=== PATIENT | male | born 1955 | race Caucasian/White ===

== ENCOUNTER → 2019-07-10 | Emergency (ER) | payer OTHER ==
[~2019-07-10] VITALS: Ht 170.2 cm; Wt 145.1 kg
--- OUTSIDE RECORDS SUMMARY | 2019-07-10 11:16 | XMS REPORT ---
Author Author [facility] Address Unknown Phone Unavailable Care Team Providers Care Deckhand Oyster Dredge Name Role Phone Unavailable Unavailable Payers Payer Name Policy Type Policy Number Effective Date Expiration Date Problems This patient has no known problems. Allergies, Adverse Reactions, Alerts Allergy Name Allergy Type Status Severity Reaction(s) Onset Date Inactive Date Treating Clinician Comments Penicillins DA Active MO 2013-12-22 00:00:00 codeine DA Active OR 2013-12-22 00:00:00 UNKNOWN ANTI INFLAMATORY DA Active U 2013-12-22 00:00:00 Medications This patient has no known medications.
--- NOTE | 2019-07-10 11:56 | NUR ---
Patient recieving CT scan.
--- NOTE | 2019-07-10 12:20 | Diagnostic Imaging Report ---
Examination: CT Head and Face without Contrast History: Fell onto the right side of face. Comparison studies:None Technique: Axial images were obtained to the vertex and maxillofacial region. Coronal and sagittal images reconstructed from the axial data. Dose modulation, iterative reconstruction, and/or weight based adjustment of the mA/kV was utilized to reduce the radiation dose to as low as reasonably achievable. Intravenous contrast: None Findings: Scalp/skull: No abnormalities. No fractures, blastic or lytic lesions. Extra-axial spaces: No masses. No fluid collections. Brain sulci: Appropriate for age. Ventricles: Normal in size and configuration. No hydrocephalus. Parenchyma: There is encephalomalacia of the left greater than right anterior inferior frontal lobes. No masses, hemorrhage, acute or chronic cortical vascular insults. Sellar/suprasellar region: No abnormalities Craniocervical junction: Patent foramen magnum. No Chiari one malformation. Maxillofacial CT: Soft tissues: There is a right inferior preseptal and premalar hematoma measuring up to 1.7 cm in thickness. No additional soft tissue injuries are identified. Bones: No fractures or bone abnormalities. Orbits: Globes: Intact Extra or intraconal abnormalities: None. Paranasal sinuses: Clear Incidental findings: Incidental note is made of degenerative disc changes at C3-C4 with a posterior disc osteophyte complex resulting in at least moderate to severe spinal canal stenosis and severe right neural foraminal stenosis. IMPRESSION: 1. A 1.7 cm right inferior preseptal and premalar soft tissue hematoma without underlying facial fracture. 2. No acute intracranial abnormality. 3. Left greater than right inferior frontal lobe encephalomalacia. The pattern is suggestive of sequela of a remote traumatic injury, although remote infarction may have a similar appearance. 4. Incidental at least moderate to severe spinal canal stenosis at C3-C4. The images and preliminary report were reviewed and signed by Dr. Cara Pantoja, neuroradiology faculty, on at 1540 hours. Signed by: Dr. Cara Pantoja M.D. on 07/10/2019 3:42 PM
== END | disposition home or self-care (01) ==
LOC: ER 11:13
DX: S00.01XA Abrasion of scalp, initial encounter (principal); S00.211A Abrasion of right eyelid and periocular area, initial encounter; S00.11XA Contusion of right eyelid and periocular area, initial encounter; W01.0XXA Fall on same level from slipping, tripping and stumbling without subsequent striking against object, initial encounter; Y92.008 Other place in unspecified non-institutional (private) residence as the place of occurrence of the external cause
CPT/HCPCS: 70450; 70486; 99283